=== PATIENT | female | born 1940 | race Caucasian/White ===

== ENCOUNTER → 2018-01-01 | Outpatient (CLI) | payer MEDICARE, OTHER ==
[~2018-01-01] MED LIST: ALBU90OI INH; ALBU90OI6; AMOX500 PO; AREDS PO; ASPI81CH PO; Amitiza24 MCG; Amitiza8 MCG PO; Aspir-Trin325 MG PO; BAYER ADVANCED500 MG; CLAR500 PO; CLON1; CLOP75 PO; DIAZ5 PO; ESOM20 PO; FLUSAL2505 IH; GABA300; HYDACE5 PO; HYDR1TAB94 MT; Ipratr-Albuterol3 ML; Ipratr-Albuterol3 ML INH; LAVAP17G PO; LORA.5 PO; METO10 PO; MONT10T PO; MONT5TCH PO; NAPR220 PO; NICO21TP TD; OMEP10ER PO; OMEP20ER PO; ONDA4 PO; ONDA4ODT MM; PANT40 PO; POTCHL20ER PO; PROM25 PO; Prednisone20 MG PO; TAMS.4ER PO; TIOT18 IH; URICALM; VALIUM PO; Veetids 500500 MG PO; Zithromax250 MG PO; Zofran Odt4 MG SL
== END ==
LOC: LAB SHORT 18:01 → LAB 18:01
DX: R30.0 Dysuria (principal)
CPT/HCPCS: 87077; 87086; 87186

== ENCOUNTER → 2018-04-29 | Outpatient (CLI) | payer MEDICARE, OTHER ==
[~2018-04-29] MED LIST changes: +ACET325 PO; +ALBU90OI6 INH; -Amitiza24 MCG; +Amitiza24 MCG PO; +CEPH250A PO; +CLON1 PO; +FLUT1DIS8 INH; +HYDR1TAB94 PO; +MIRALAX17 GM PO; -OMEP10ER PO; +OMEPRAZOLE MAGN20 MG PO; +Ocuvite Softge1 EAC1 PO; +TOLT4 PO; +ULTRACET PO
== END | disposition home or self-care (01) ==
LOC: LAB SHORT 11:50 → LAB 11:50
DX: N39.0 Urinary tract infection, site not specified (principal)
CPT/HCPCS: 87077; 87086; 87186

== ENCOUNTER → 2019-01-21 | Outpatient (CLI) | payer MEDICARE, OTHER ==
[2019-01-21 19:51] LABS: Appearance, Urine Cloudy (Clear); Blood, Urine 3+ (Neg); Glucose Qualitative, Urine Neg (Neg); Ketones, Urine Neg (Neg); Leukocyte Esterase, Urine 3+ (Neg); Nitrite, Urine Pos (Neg); Protein, Urine 3+ (Neg); Specific Gravity, Urine 1.015 (1.003-1.022); Urobilinogen, Urine 3+ (Normal)
[2019-01-21 20:18] LABS: Bilirubin, Urine 3+ (Neg); Color, Urine Orange (P-Yellow)
[2019-01-21 20:21] LABS: Bacteria Many /hpf; Squamous Epithelial Cells Few /hpf (Few); White Blood Cells, Urine TNTC /hpf (0-5)
== END | disposition home or self-care (01) ==
LOC: LAB SHORT 18:43 → LAB 18:43
DX: N39.0 Urinary tract infection, site not specified (principal)
CPT/HCPCS: 81001; 87077; 87086; 87186

== ENCOUNTER → 2019-02-16 | Outpatient (CLI) | payer MEDICARE, OTHER ==
[~2019-02-16] MED LIST changes: +Amitiza24 MCG; +BAYER ADVANCED500 MG PO; +FLUSAL2505 INH; +GABA300 PO; +Ipratr-Albuterol3 ML IH; +METO10; +TIOT18
== END | disposition home or self-care (01) ==
LOC: LAB SHORT 07:38 → PLD 07:38
DX: L82.1 Other seborrheic keratosis (principal)
CPT/HCPCS: 88305

== ENCOUNTER → 2019-07-30 | Outpatient (CLI) | payer MEDICARE, OTHER | END | disposition home or self-care (01) | LOC: LAB 13:20 → LAB SHORT 13:20 | DX: R30.0 Dysuria (principal) | CPT/HCPCS: 87086 ==

== ENCOUNTER → 2019-08-11 | Outpatient (CLI) | payer MEDICARE, OTHER | END | disposition home or self-care (01) | LOC: LAB SHORT 13:42 → LAB 13:42 | DX: R30.0 Dysuria (principal) | CPT/HCPCS: 87077; 87086; 87186 ==

== ENCOUNTER → 2019-09-17 | Outpatient (CLI) | payer MEDICARE, OTHER ==
[2019-09-17 19:16] LABS: Blood, Urine 2+ (Neg); Glucose Qualitative, Urine Neg (Neg); Ketones, Urine Neg (Neg); Leukocyte Esterase, Urine 3+ (Neg); Nitrite, Urine Pos (Neg); Protein, Urine 2+ (Neg); Specific Gravity, Urine 1.015 (1.003-1.022); Urobilinogen, Urine 3+ (Normal)
[2019-09-17 19:31] LABS: Appearance, Urine Cloudy (Clear); Bilirubin, Urine 3+ (Neg); Color, Urine Orange (P-Yellow)
[2019-09-17 19:32] LABS: Bacteria Mod /hpf; Squamous Epithelial Cells Rare /hpf (Few); White Blood Cells, Urine TNTC /hpf (0-5)
== END | disposition home or self-care (01) ==
LOC: LAB SHORT 17:46 → LAB 17:46
DX: R30.0 Dysuria (principal)
CPT/HCPCS: 81001; 87077; 87086; 87186

== ENCOUNTER → 2019-10-15 | Outpatient (CLI) | payer MEDICARE, OTHER | END | disposition home or self-care (01) | LOC: LAB 12:59 → LAB SHORT 12:59 | DX: N39.0 Urinary tract infection, site not specified (principal); R30.0 Dysuria; R32 Unspecified urinary incontinence | CPT/HCPCS: 87077; 87086; 87186 ==

== ENCOUNTER → 2020-07-21 | Outpatient (CLI) | payer MEDICARE, OTHER ==
[2020-07-21 13:34] LABS: BASOPHILS ABSOLUTE AUTO 0.06 K/mm3 (0.00-0.23); BASOPHILS PERCENT AUTO 1 % (0-2); EOSINOPHILS ABSOLUTE AUTO 0.12 K/mm3 (0.00-0.68); EOSINOPHILS PERCENT AUTO 1 % (0-6); Hematocrit 34.6 % (33.0-51.0); Hemoglobin 10.7 g/dL (11.5-16.0); IMMATURE GRAN ABSOLUTE AUTO 0.22 K/mm3 (0.00-0.10); IMMATURE GRAN PERCENT AUTO 2 % (0-1); LYMPHOCYTES ABSOLUTE AUTO 0.72 K/mm3 (0.84-5.20); LYMPHOCYTES PERCENT AUTO 6 % (21-46); MONOCYTES ABSOLUTE AUTO 1.04 K/mm3 (0.16-1.47); MONOCYTES PERCENT AUTO 9 % (4-13); Mean Corpuscular HGB 29.5 pg (26.0-34.0); Mean Corpuscular HGB Conc 30.9 g/dL (31.5-36.5); Mean Corpuscular Volume 95 fL (80-100); Mean Platelet Volume 9.9 fL (9.1-12.4); NEUTROPHILS ABSOLUTE AUTO 10.01 K/mm3 (1.96-9.15); NEUTROPHILS PERCENT AUTO 82 % (41-73); Platelet Count 239 K/mm3 (150-400); RDW Coefficient Variation 15.6 % (11.7-14.2); RDW Standard Deviation 54.5 fL (35.1-46.3); Red Blood Cell Count 3.63 M/mm3 (3.80-5.20); White Blood Cell Count 12.17 K/mm3 (4.00-11.30)
[2020-07-21 14:10] LABS: Albumin, Blood 3.5 g/dL (3.4-5.0); Anion Gap 4 mmol/L (6-16); Blood Urea Nitrogen 16 mg/dL (8-24); Bun/Creatinine Ratio 15.4 (12.0-20.0); CO2, Blood 29 mmol/L (21-32); Calcium, Blood 9.1 mg/dL (8.5-10.1); Chloride, Blood 103 mmol/L (98-108); Creatinine, Blood 1.04 mg/dL (0.40-1.00); Glomerular Filtration Rate 54 (60-); Glucose, Blood 94 mg/dL (70-99); Phosphorus, Blood 2.7 mg/dL (2.5-4.9); Potassium, Blood 4.3 mmol/L (3.5-5.5); Sodium, Blood 136 mmol/L (136-145)
== END | disposition home or self-care (01) ==
LOC: LAB SHORT 11:27 → LAB FUT 11-23 16:20
PROVIDERS: Family Medicine; Internal Medicine Nephrology
DX: N18.30 Chronic kidney disease, stage 3 unspecified (principal); D63.1 Anemia in chronic kidney disease; N25.81 Secondary hyperparathyroidism of renal origin; E55.9 Vitamin D deficiency, unspecified; E78.00 Pure hypercholesterolemia, unspecified; D51.8 Other vitamin B12 deficiency anemias; D52.8 Other folate deficiency anemias; D50.9 Iron deficiency anemia, unspecified; R76.9 Abnormal immunological finding in serum, unspecified; R94.5 Abnormal results of liver function studies; R94.6 Abnormal results of thyroid function studies; J44.9 Chronic obstructive pulmonary disease, unspecified; R06.00 Dyspnea, unspecified
CPT/HCPCS: 36415; 80069; 85018; 85025

== ENCOUNTER 2020-10-12 20:24 | Inpatient (IN) | payer MEDICARE, OTHER ==
[~2020-10-12] VITALS: Ht 165.1 cm; Wt 82.4 kg
[2020-10-12 20:39] LABS: PCO2 Arterial 75.7 mmHg (35-45); PO2 Arterial 58.5 mmHg (80-100); pH Blood Arterial 7.29 (7.35-7.45)
[2020-10-12 20:44] LABS: BASOPHILS ABSOLUTE AUTO 0.03 K/mm3 (0.00-0.23); BASOPHILS PERCENT AUTO 0 % (0-2); EOSINOPHILS ABSOLUTE AUTO 0.07 K/mm3 (0.00-0.68); EOSINOPHILS PERCENT AUTO 1 % (0-6); Hematocrit 35.7 % (33.0-51.0); Hemoglobin 10.9 g/dL (11.5-16.0); IMMATURE GRAN ABSOLUTE AUTO 0.21 K/mm3 (0.00-0.10); IMMATURE GRAN PERCENT AUTO 1 % (0-1); LYMPHOCYTES ABSOLUTE AUTO 0.65 K/mm3 (0.84-5.20); LYMPHOCYTES PERCENT AUTO 4 % (21-46); MONOCYTES ABSOLUTE AUTO 1.18 K/mm3 (0.16-1.47); MONOCYTES PERCENT AUTO 8 % (4-13); Mean Corpuscular HGB 30.5 pg (26.0-34.0); Mean Corpuscular HGB Conc 30.5 g/dL (31.5-36.5); Mean Corpuscular Volume 100 fL (80-100); Mean Platelet Volume 9.5 fL (9.1-12.4); NEUTROPHILS ABSOLUTE AUTO 12.94 K/mm3 (1.96-9.15); NEUTROPHILS PERCENT AUTO 86 % (41-73); Platelet Count 235 K/mm3 (150-400); RDW Coefficient Variation 15.1 % (11.7-14.2); RDW Standard Deviation 55.8 fL (35.1-46.3); Red Blood Cell Count 3.57 M/mm3 (3.80-5.20); White Blood Cell Count 15.08 K/mm3 (4.00-11.30)
[2020-10-12 21:05] LABS: Albumin, Blood 3.8 g/dL (3.4-5.0); Albumin/Globulin Ratio 1.2 (0.8-1.8); Bilirubin, Total 0.3 mg/dL (0.1-1.0); Bun/Creatinine Ratio 14.1 (12.0-20.0); Calcium, Blood 9.7 mg/dL (8.5-10.1); Creatinine, Blood 0.99 mg/dL (0.40-1.00); Globulin, Blood 3.2 g/dL (2.2-4.0); Magnesium, Blood 2.3 mg/dL (1.6-2.4); Potassium, Blood 4.5 mmol/L (3.5-5.5); Troponin I 0.097 ng/mL (0.000-0.040)
[2020-10-12] MEDS ORDERED: IPRAT-ALBUT 0.5-3 ML INH (21:36)
[2020-10-12] MEDS ORDERED: METOPROLOL SUCC25 MG PO (21:36)
[2020-10-12] MEDS ORDERED: IPRATROPIUM BRO30 ML (21:36)
[2020-10-12] MEDS ORDERED: TOLTERODINE TART2 MG PO (21:36)
[2020-10-12] MEDS ORDERED: Prednisone10 MG PO (21:37)
[2020-10-12] MEDS ORDERED: TIOT18 INH (21:37)
[2020-10-12] MEDS ORDERED: Estrace Vagin42.5 GM VAG (21:37)
[2020-10-12] MEDS ORDERED: B-121000 MC3 PO (21:38)
[2020-10-12] MEDS ORDERED: DOK100 MG PO (21:38)
[2020-10-12] MEDS ORDERED: CLONAZEPAM1 MG PO (21:39)
[2020-10-12] MEDS ORDERED: LINZESS145 MCG PO (21:39)
[2020-10-12] MEDS ORDERED: WIXELA 250-501 EAC1 INH (21:39)
[2020-10-12] MEDS ORDERED: LETROZOLE2.5 M3 PO (21:39)
[2020-10-13 02:52] LABS: BASOPHILS ABSOLUTE AUTO 0.04 K/mm3 (0.00-0.23); BASOPHILS PERCENT AUTO 0 % (0-2); EOSINOPHILS ABSOLUTE AUTO 0.01 K/mm3 (0.00-0.68); EOSINOPHILS PERCENT AUTO 0 % (0-6); Hematocrit 34.8 % (33.0-51.0); Hemoglobin 10.6 g/dL (11.5-16.0); IMMATURE GRAN ABSOLUTE AUTO 0.26 K/mm3 (0.00-0.10); IMMATURE GRAN PERCENT AUTO 2 % (0-1); LYMPHOCYTES ABSOLUTE AUTO 0.16 K/mm3 (0.84-5.20); LYMPHOCYTES PERCENT AUTO 1 % (21-46); MONOCYTES ABSOLUTE AUTO 0.21 K/mm3 (0.16-1.47); MONOCYTES PERCENT AUTO 1 % (4-13); Mean Corpuscular HGB 30.4 pg (26.0-34.0); Mean Corpuscular HGB Conc 30.5 g/dL (31.5-36.5); Mean Corpuscular Volume 100 fL (80-100); Mean Platelet Volume 9.4 fL (9.1-12.4); NEUTROPHILS ABSOLUTE AUTO 16.58 K/mm3 (1.96-9.15); NEUTROPHILS PERCENT AUTO 96 % (41-73); Platelet Count 213 K/mm3 (150-400); RDW Coefficient Variation 15.3 % (11.7-14.2); RDW Standard Deviation 55.6 fL (35.1-46.3); Red Blood Cell Count 3.49 M/mm3 (3.80-5.20); White Blood Cell Count 17.26 K/mm3 (4.00-11.30)
[2020-10-13 02:58] LABS: PO2 Arterial 103 mmHg (80-100)
[2020-10-13 03:28] LABS: Anion Gap 1 mmol/L (6-16); Blood Urea Nitrogen 17 mg/dL (8-24); CO2, Blood 37 mmol/L (21-32); Calcium, Blood 9.2 mg/dL (8.5-10.1); Chloride, Blood 99 mmol/L (98-108); Creatinine, Blood 0.94 mg/dL (0.40-1.00); Glomerular Filtration Rate >60 (60-); Glucose, Blood 142 mg/dL (70-99); Potassium, Blood 5.2 mmol/L (3.5-5.5); Sodium, Blood 137 mmol/L (136-145); Troponin I 0.065 ng/mL (0.000-0.040)
[2020-10-13 05:46] LABS: PCO2 Arterial 64.9 mmHg (35-45); PO2 Arterial 80.1 mmHg (80-100); pH Blood Arterial 7.37 (7.35-7.45)
--- NOTE | 2020-10-13 19:52 | NUR ---
SHIFT SUMMARY PT TO UNIT DURING SHIFT FROM ED. HR STABLE. BP STABLE. NO CP OR PRESSURE. OXYGEN SATURATION MAINTAINED ABOVE 92% ON 4 L OF OXYGEN VIA NC. PHYSICIAN AT BEDSIDE TO UPDATE PT ON DX. PT'S DAUGHTER UPDATED ON PT'S DX. DEPENDS ON PT FOR INCONTINENCE. PT ANXIOUS AT TIMES. CALMS WITH REASURANCE. BIPAP AT BEDSIDE. REPORT GIVEN TO PATRICIO BAJWA.
[2020-10-14 05:09] LABS: BASOPHILS ABSOLUTE AUTO 0.01 K/mm3 (0.00-0.23); BASOPHILS PERCENT AUTO 0 % (0-2); EOSINOPHILS PERCENT AUTO 0 % (0-6); Hemoglobin 10.4 g/dL (11.5-16.0); IMMATURE GRAN ABSOLUTE AUTO 0.15 K/mm3 (0.00-0.10); IMMATURE GRAN PERCENT AUTO 1 % (0-1); LYMPHOCYTES PERCENT AUTO 2 % (21-46); MONOCYTES ABSOLUTE AUTO 0.28 K/mm3 (0.16-1.47); MONOCYTES PERCENT AUTO 3 % (4-13); Mean Corpuscular HGB 29.8 pg (26.0-34.0); Mean Corpuscular HGB Conc 30.6 g/dL (31.5-36.5); Mean Corpuscular Volume 97 fL (80-100); Mean Platelet Volume 9.9 fL (9.1-12.4); NEUTROPHILS ABSOLUTE AUTO 9.97 K/mm3 (1.96-9.15); NEUTROPHILS PERCENT AUTO 94 % (41-73); Platelet Count 195 K/mm3 (150-400); RDW Coefficient Variation 14.6 % (11.7-14.2); Red Blood Cell Count 3.49 M/mm3 (3.80-5.20); White Blood Cell Count 10.61 K/mm3 (4.00-11.30)
--- NOTE | 2020-10-14 05:41 | NUR ---
SHIFT SUMMARY NO ACUTE CHANGES THIS SHIFT. PT A&OX4. ANXIOUS. PT STATED SHE HAS QUESTIONS ABOUT HOSPICE BECAUSE SHE DOESNT "WANT TO BE A BURDEN" TO HER . SP02>92% ON 4L NC. PT HAS PRODUCTIVE, MOIST COUGH. TELEMETRY READS SR, HR 90'S. PT UP TO BSC X2 THIS SHIFT TO VOID. OTHER INCONTINENT VOIDS WELL. C/D ATTENDS IN PLACE. PT DENIES PAIN. PT DID NOT SLEEP MOST OF SHIFT. CALL LIGHT IN REACH. WILL GIVE REPORT TO ONCOMING NURSE.
[2020-10-14 06:19] LABS: Anion Gap 3 mmol/L (6-16); Blood Urea Nitrogen 22 mg/dL (8-24); Bun/Creatinine Ratio 23.6 (12.0-20.0); CO2, Blood 36 mmol/L (21-32); Calcium, Blood 9.2 mg/dL (8.5-10.1); Chloride, Blood 97 mmol/L (98-108); Creatinine, Blood 0.93 mg/dL (0.40-1.00); Glomerular Filtration Rate >60 (60-); Glucose, Blood 133 mg/dL (70-99); Potassium, Blood 4.2 mmol/L (3.5-5.5); Sodium, Blood 136 mmol/L (136-145)
--- NOTE | 2020-10-14 08:00 | NUR ---
PT LAYING IN BED THIS AM AWAKE A/OX3, PLEASANT AND COOPERATIVE WITH CARE, FOLLOWS COMMANDS WELL, DENIES PAIN AT THIS TIME, LUNGS ARE COURSE T/O WITH A WET HARSH COUGH, IS CURRENTLY ON 4 LITERS 02 VIA N/C, HRR, TELE IN PLACE RUNNING SR PER MONITOR, SEE STRIP, NO EDEMA NOTED, PPP+1, CAP REFILL <3SEC, VS STABLE, AFEBRILE, IV SITE IS CLEAR AND PATENT, BTX4, ABD FLAT SOFT NONTENDER, VOIDS WITHOUT DIFF, SKIN FRAIL, C/W/D, MAEW, WEAK, DESATS WITH SOB WITH ANY ACTIVITY, FER, CALL LIGHT IN REACH.
--- NOTE | 2020-10-14 12:34 | NUR ---
Pt sitting in chair upon arrival. Pt is A&O and denies pain at this time. Pt appears moderately dyspneic as evidenced by work of breathing when speaking. 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 She reports hospice is the recommendation. Continued therapeutic listening and answered questions. Educated on hospice philosophy with V/U made by Pt. Pt expresses concerns regarding her and adding more stress on him as her careneeds increase. She reports her ability to do things have significantly decrease. She reports difficulty ambulating from her bedroom to the bathroom and states dyspnea is severe. Continued therapeutic listening and discussed concidering hiring caregivers or experimental mechanic spacecraft to assit with the daily needs. Pt reports being on a semi limited income and will have to evaluate her finances to determine what she can afford. Pt reports interest in hospice and would like to discuss further with hospice benefits representative. Discussed hospice agencies to choose from and Pt chooses [facility]. She states her neighbor works for [employer]. Pt reports her plans to visit today during visiting hours and is agreeable for this RN to F/U for any questions spouse may have. Spoke with Pt's primary RN Cody and discussed case. Spoke with Jennifer Roman and discussed case. Spoke with [facility] Liadavon Suarez and discussed case. Palliative Care will F/U for supportive visits.
--- NOTE | 2020-10-14 16:20 | NUR ---
F/U visit this afternoon. Pt All at bedside. Pt having conversation with spouse regarding hospice. Pt agreeable for this RN to assist with conversation. Educated All on hospice philosophy and answered questions. Offered emotional support as All is intermittently tearful. Encourage Pt and spouse to discuss each other fears and concerns. Continued therapeutic listening. Dr Puckett in to see Pt. Pt is agreeable to hospice services and comfort care during her hospital stay. Educated Pt and spouse on comfort care philosophy with V/U made by Pt. Dr Puckett reports plan to continue majority of her current medications and will add medication for her restless leg syndrome. Dr Puckett will place comfort care order. Spoke with [facility] Su[facility] who reports plan to see Pt this afternoon. Hospice admission date is Saturday at the earliest. Palliative Care will remain available.
--- NOTE | 2020-10-14 18:09 | NUR ---
PT HAS BEEN TRANSITIONED TO COMFORT CARE AND WILL GO HOME ON HOSPICE, SHE WAS TX TO MEDICAL FLOOR, REPORT GIVEN TO RECIEVING NURSE, LEFT VIA WHEELCHAIR WITH CLINICAL COUNSELOR IN ATTENDENCE, WITH ALL HER BELONGINGS.
--- NOTE | 2020-10-14 19:24 | NUR ---
SHIFT SUMMARY PT ARRIVED FROM PCU AT 6PM. SBA TO TRANSFER, UP IN CHAIR FOR MEAL. 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 NO PAIN. CALLS APROPRIATELY FOR SBA TO BSC. CALL LIGHT IN REACH, REPORT GIVEN TO NIGHT NURSE
--- NOTE | 2020-10-15 06:20 | NUR ---
SHIFT SUMMARY PT HAD AN UNEVENTFUL NIGHT. REMAINED ON 4 L VIA NC. NO COMPLAINTS OF PAIN OR DISCOMFORT. SLEPT THROUGH MUCH OF THE NIGHT. BREATHING TX'S PER RT. PT SPOKE TO DAUGHTER ON THE PHONE. NO ACUTE CHANGES THIS EVENING. WILL CONTINUE TO MONITOR.
--- NOTE | 2020-10-15 19:13 | NUR ---
SHIFT SUMMARY ISAURA DENIED PAIN THIS SHIF.T FAMILY VISITED. UP TO BR WITH AO1. GOT PRN RT TREATEMENTS, USING SUCTION FOR SPUTUM, STILL ON 4L NC. TO DC W HOSPICE POSSIBLY SATURDAY
--- NOTE | 2020-10-16 05:40 | NUR ---
SHIFT SUMMARY PT HAD A DIFFICULT TIME SLEEPING THIS EVENING. HAVING MORE SECRETIONS CAUSING FREQUENT COUGHING AND PAIN CAUSED FROM THE COUGHING. ATROPINE DROPS AND SCOPOLAMINE PATCH GIVEN WITH GOOD EFFECT WITH DECREASED SECRETIONS. PT MEDICATED X 2 W/ 10 MG ROXANOL. PT TOLERATED WELL. PT PLEASANT AND COOPERATIVE. CALLS APPROPRIATELY WHEN SHE HAS NEEDS. WILL CONTINUE TO MONITOR.
--- NOTE | 2020-10-16 17:11 | NUR ---
SHIFT SUMMARY PATIENT ALERT AND ORIENTED THIS SHIFT. PATIENT REMAINS ON COMFORT CARE. PATIENT WITH MULTIPLE VISITORS THROUGHOUT THIS SHIFT. NO ACUTE CHANGES THIS SHIFT. PATIENT UP WITH 1 ASSIST THROUGHOUT THIS SHIFT. PATIENT CURRENTLY SITTING UP IN BED VISITING WITH FAMILY.
--- NOTE | 2020-10-17 05:18 | NUR ---
SHIFT SUMMARY NO ACUTE EVENTS THIS EVENING. PT SLEPT WELL THROUGH MOST OF THE NIGHT. INCREASE IN SECRETIONS AT START OF SHIFT. ATROPINE DROPS GIVEN WITH GOOD EFFECT. PT REMAINS ON 4 L O2 VIA NC. SOB W/ EXERTION. BREATHING TX'S PER RT, HELPFUL WHEN PT IS FEELING SOB. PT REPORTED SOME PAIN IN NECK, REPOSITIONED FOR COMFORT. PT DECLINES ANY PAIN MEDICATION THIS SHIFT. PT RESTING COMFORTABLY IN BED AT THIS TIME. WILL CONTINUE TO MONITOR.
[2020-10-17 13:16] LABS: Source, Urine Clean Catch
[2020-10-17 13:26] LABS: Appearance, Urine Clear (Clear); Bilirubin, Urine Neg (Neg); Blood, Urine Neg (Neg); Color, Urine Yellow (P-Yellow); Glucose Qualitative, Urine Neg (Neg); Ketones, Urine Neg (Neg); Leukocyte Esterase, Urine Neg (Neg); Nitrite, Urine Neg (Neg); Protein, Urine 2+ (Neg); Urobilinogen, Urine NORM (Normal)
[2020-10-17 13:42] LABS: Bacteria Not Seen /hpf; Red Blood Cells, Urine Rare /hpf (0-2); Squamous Epithelial Cells Many /hpf (Few)
[2020-10-17 13:43] LABS: Transitional Epithelial Cells Few /hpf (0-Rare); White Blood Cells, Urine 0-2 /hpf (0-5)
--- NOTE | 2020-10-17 18:23 | NUR ---
PATIENT ALERT AND ORIENTED X 4. PATIENT STATES SHE HADN'T HAD A BOWEL MOVEMENT FOR 10 DAYS AND WAS TREATED PER EMAR. SHE STATES SHE BELIEVES SHE HAS A UTI AND DR. ROBERTS WAS NOTIFIED. A URINE SAMPLE WAS SENT TO THE LAB PER DR. ROBERTS. PATIENT STILL GETS SHORTNESS OF BREATH WHEN STANDING. FAMILY MEMEBERS AT BEDSIDE. BED IN LOWEST POSITION WITH CALL LIGHT IN REACH.
--- NOTE | 2020-10-18 04:37 | NUR ---
SHIFT SUMMARY A/OX3, PLEASANT AND COOPERATIVE WITH CARE. UP TO BATHROOM WITH 1 ASSIST AND FWW. C/O PAIN DURING URINATION, MEDICATED WITH PYRIDIUM. APPEARED TO SLEEP T/O THE NIGHT. ORAL CARE AND SUCTIONING PRN. NO ACUTE CHANGES AT THIS TIME. POSS. D/C HOME TODAY WITH HOSPICE. COMFORT MEASURES CURRENTLY IN PLACE. WILL CONTINUE TO MONITOR AND REPORT TO ONCOMING RN.
[2020-10-18] MEDS ORDERED: ATROPINE SULFATE5 ML SL (10:22)
[2020-10-18] MEDS ORDERED: MORP20L SL (10:25)
[2020-10-18] MEDS ORDERED: MIRALAX17 GM PO (10:32)
[2020-10-18] MEDS ORDERED: ROPI.25 PO (10:33)
[2020-10-18] MEDS ORDERED: TRANSDERM-SCOP1 EAC2 TD (10:34)
[2020-10-18] MEDS ORDERED: SIME80CH PO (10:36)
--- NOTE | 2020-10-18 11:22 | NUR ---
PT DISCHARGED AT 1055 VIA AMBULANCE TO HOME ON HOSPICE. [facility] HAS SET UP TO CARE FOR PT ONCE HOME. PT ONE PERSON WITH WALKER TO TRANSFER. NO DISTRESS NOTED AND COOPERATIVE OF CARE. ALL PERSONAL BELONGINGS COLLECTED AND TAKEN WITH PT'S FAMILY.
== END 2020-10-18 10:55 | disposition hospice, home (50) | DRG 871 ==
LOC: ER 20:24 → PCU 22:47 → ERHOLD 22:47 → PCU 10-13 13:03 → MEDS 10-14 18:15
PROVIDERS: Emergency Medicine; Internal Medicine; ADMIT Family Medicine
PROC: 5A09357 Assistance with Respiratory Ventilation, Less than 24 Consecutive Hours, Continuous Positive Airway Pressure (ICD-10-PCS; principal; 2020-10-12)
DX: A41.9 Sepsis, unspecified organism (principal); J96.21 Acute and chronic respiratory failure with hypoxia; J96.22 Acute and chronic respiratory failure with hypercapnia; J18.9 Pneumonia, unspecified organism; J44.1 Chronic obstructive pulmonary disease with (acute) exacerbation; J44.0 Chronic obstructive pulmonary disease with (acute) lower respiratory infection; I24.8 Other forms of acute ischemic heart disease; Z51.5 Encounter for palliative care; Z66 Do not resuscitate; Z20.822 Contact with and (suspected) exposure to COVID-19; R65.20 Severe sepsis without septic shock; M21.921 Unspecified acquired deformity of right upper arm; G89.29 Other chronic pain; M54.9 Dorsalgia, unspecified; D63.8 Anemia in other chronic diseases classified elsewhere; K59.00 Constipation, unspecified; Z88.2 Allergy status to sulfonamides; Z88.5 Allergy status to narcotic agent; Z88.1 Allergy status to other antibiotic agents; Z88.8 Allergy status to other drugs, medicaments and biological substances; Z90.49 Acquired absence of other specified parts of digestive tract; Z98.890 Other specified postprocedural states; Z90.12 Acquired absence of left breast and nipple; Z90.5 Acquired absence of kidney; Z87.891 Personal history of nicotine dependence; Z79.51 Long term (current) use of inhaled steroids; Z79.899 Other long term (current) drug therapy; Z99.81 Dependence on supplemental oxygen; Z95.820 Peripheral vascular angioplasty status with implants and grafts; Z85.3 Personal history of malignant neoplasm of breast
CPT/HCPCS: 36415; 36600; 71045; 80048; 80053; 81001; 82803; 83605; 83735; 83880; 84145; 84484; 85025; 87040; 93005; 93010; 94640; 94644; 94660; 94760; 94762; 96365; 96372; 96375; 96376; 97162; 97530; 99285-25; A9270; J0456; J0696; J1650; J2060; J2930; J7050; J7512